=== PATIENT | male | born 1950 | race Caucasian/White ===

== ENCOUNTER 2017-11-27 22:07 | Emergency (ER) | payer OTHER ==
[~2017-11-27] VITALS: Ht 170.2 cm; Wt 84.1 kg
[2017-11-27] MEDS ORDERED: MOTRIN600 MG PO (23:24)
[2017-11-27 23:37] VITALS: BP 121/75
== END 2017-11-27 23:37 | disposition home or self-care (01) ==
LOC: EME 22:07
DX: S43.402A Unspecified sprain of left shoulder joint, initial encounter (principal); Y04.8XXA Assault by other bodily force, initial encounter
CPT/HCPCS: 73030; 99281; 99283